=== PATIENT | female | born 1990 | race Caucasian/White ===

== ENCOUNTER 2023-02-07 13:15 | Emergency (ER) | payer OTHER ==
[2023-02-07] MEDS ORDERED: Ketorolac 30 MG/ML SDV IM ONE (13:35)
== END 2023-02-07 14:10 ==
LOC: JD.ED 13:15
DX: S01.111A Laceration without foreign body of right eyelid and periocular area, initial encounter (principal); Y04.2XXA Assault by strike against or bumped into by another person, initial encounter
CPT/HCPCS: 12011; 96372; 99284; J1885; 99283

== ENCOUNTER 2023-08-21 19:03 | Emergency (ER) | payer OTHER | END 2023-08-21 20:03 | LOC: JD.ED 19:03 | DX: S09.90XA Unspecified injury of head, initial encounter (principal); Z79.899 Other long term (current) drug therapy; Z87.891 Personal history of nicotine dependence; W22.8XXA Striking against or struck by other objects, initial encounter | CPT/HCPCS: 70450; 70450-26; 99282; 99284 ==